=== PATIENT | female | born 1965 | race Caucasian/White ===

== ENCOUNTER 2017-01-16 13:08 | Emergency (ER) | payer MEDICAID, OTHER ==
[2017-01-16 13:33] VITALS: RESP 18; TEMP 98.6
[2017-01-16] MEDS ORDERED: Albuterol-Ipratrop 3 mg / 0.5 (3 ml) UD IH SCH (14:30)
[2017-01-16] MEDS ORDERED: Albuterol-Ipratrop 3 mg / 0.5 (3 ml) UD ONE (14:31)
--- NOTE | 2017-01-16 14:58 | C.PDOC ---
History Of Present Illness 51 yr old female with PMHx of diabetes and asthma, presents to the ER with complaints of cough, runny nose, wheezing and chest discomfort for the past 1 week. Patient denies fever, chills, nausea, vomiting, abdominal pain, diarrhea, headache, weakness or numbness. Time Seen by Provider: 01/16/17 13:48 Chief Complaint (Nursing): Shortness Of Breath History Per: Patient History/Exam Limitations: no limitations Onset/Duration Of Symptoms: Days (1 week) Initiating Event: Upper Respiratory Illness Past Medical History Reviewed: Historical Data, Nursing Documentation, Vital Signs Vital Signs: Last Vital Signs Temp 98.6 F 01/16/17 13:31 Pulse 78 01/16/17 13:31 Resp 18 01/16/17 13:55 BP 123/76 01/16/17 13:31 Pulse Ox 96 01/16/17 15:00 - Medical History PMH: Asthma, Diabetes, HTN, Hyperthyroidism - [facility] Procedures APPLICATION OF SPLINT (03/22/13) Family History: States: No Known Family Hx - Social History Hx Tobacco Use: No Hx Alcohol Use: No Hx Substance Use: No - Immunization History Hx Tetanus Toxoid Vaccination: No Hx Influenza Vaccination: Yes Hx Pneumococcal Vaccination: No Review Of Systems Except As Marked, All Systems Reviewed And Found Negative. Constitutional: Negative for: Fever, Chills ENT: Positive for: Nose Discharge (Runny nose) Cardiovascular: Positive for: Other ((+) Chest discomfort ) Respiratory: Positive for: Cough, Wheezing Gastrointestinal: Negative for: Nausea, Vomiting, Abdominal Pain, Diarrhea Neurological: Negative for: Weakness, Numbness, Headache Physical Exam - Physical Exam Appears: Well, Non-toxic, No Acute Distress, Other (Morbidly obese ) Skin: Warm, Dry, No Rash Head: Atraumatic, Normacephalic Eye(s): bilateral: Normal Inspection, PERRL, EOMI Ear(s): Bilateral: Normal Oral Mucosa: Moist Throat: Normal, No Erythema, No Exudate, No Drooling Neck: Normal, Normal ROM, Supple Chest: Symmetrical, No Tenderness Cardiovascular: Rhythm Regular, No Murmur Respiratory: Decreased Breath Sounds (bilateraly ), No Rales, No Wheezing Gastrointestinal/Abdominal: Normal Exam, Soft, No Tenderness, No Guarding, No Rebound, No Hernia Extremity: Normal ROM, No Swelling Neurological/Psych: Oriented x3, Normal Speech, Normal Motor ED Course And Treatment O2 Sat by Pulse Oximetry: 96 Progress Note: Patient is given 1 treatment of Nebulizer. Patient cannot be treated with steriods due to diabetes. Medical Decision Making Medical Decision Making: PLAN: * CXR * EKG * Albuterol IH Disposition Counseled Patient/Family Regarding: Studies Performed, Diagnosis, Need For Followup, Rx Given - Disposition Disposition: HOME/ ROUTINE Disposition Time: 15:25 Condition: IMPROVED Additional Instructions: Take medications as indicated. Follow up with your doctor. Return to the ED with any other concerns. Prescriptions: Albuterol 0.083% [Albuterol 0.083% Inhal Lety (2.5 mg/3 ml) UD] 2.5 mg IH BID # 24 neb Azithromycin [Zithromax] 250 mg PO DAILY #6 tab Benzonatate [Tessalon Perles] 200 mg PO BID #12 sgl Prednisone [Deltasone] 40 mg PO DAILY #6 tablet Prednisone 200 gm MC BID #12 powder Instructions: Acute Bronchitis (ED) Forms: General Discharge Instructions - POA Present On Arrival: None - Clinical Impression Clinical Impression: Bronchitis - Scribe Statement The provider has reviewed the documentation as recorded by the Jodi Mejia Provider Attestation: All medical record entries made by the Shunibamilcar were at my direction and personally dictated by me. I have reviewed the chart and agree that the record accurately reflects my personal performance of the history, physical exam, medical decision making, and the department course for this patient. I have also personally directed, reviewed, and agree with the discharge instructions and disposition.
--- NOTE | 2017-01-16 15:27 | RAD ---
HISTORY: cough, chest pain COMPARISON: 12/03/2013. TECHNIQUE: Chest PA and lateral FINDINGS: LUNGS: No active pulmonary disease. PLEURA: No significant pleural effusion identified. No pneumothorax apparent. CARDIOVASCULAR: Cardiomegaly, mild pulmonary vascular congestion. Similar therefore chronic findings identified previously. OSSEOUS STRUCTURES: No significant abnormalities. VISUALIZED UPPER ABDOMEN: Normal. OTHER FINDINGS: None. IMPRESSION: No active pulmonary disease. No significant interval change compared to the prior examination(s).
[2017-01-16 15:35] VITALS: BP 138/78; PULSE 75; O2SAT 98
--- NOTE | 2017-01-19 07:43 | CARD ---
APPROVED REPORT EKG Measurement Heart [id number] <Conclusion> Normal sinus rhythm Normal ECG
== END 2017-01-16 15:37 | disposition home or self-care (01) ==
LOC: C.ER 13:08
DX: J40 Bronchitis, not specified as acute or chronic (principal)

== ENCOUNTER 2017-06-13 11:24 | Emergency (ER) | payer MEDICAID, OTHER ==
[2017-06-13 11:31] VITALS: RESP 18
[2017-06-13] MEDS ORDERED: Albuterol-Ipratrop 3 mg / 0.5 (3 ml) UD ONE ×2 (12:05→12:56)
[2017-06-13] MEDS: Albuterol-Ipratrop 3 mg / 0.5 (3 ml) UD IH SCH ×3 (12:10→12:35)
[2017-06-13 12:16] LABS: BASO # 0.1 K/uL (0.0-0.2); BASO % 0.8 % (0.0-2.0); EOS # 0.3 K/uL (0.0-0.7); EOS % 4.8 % (0.0-4.0); HEMATOCRIT 38.7 % (34.0-47.0); LYMPH # 1.3 K/uL (1.0-4.3); LYMPH % 20.4 % (20.0-40.0); MEAN CELL VOLUME 79.2 fL (81.0-99.0); MEAN CORPUSCULAR HEMOGLOBIN 25.9 pg (27.0-31.0); MEAN CORPUSCULAR HGB CONC 32.6 g/dL (33.0-37.0); MEAN PLATELET VOLUME 7.9 fL (7.2-11.7); MONO # 0.5 K/uL (0.0-0.8); MONO % 8.1 % (0.0-10.0); RED CELL DISTRIBUTION WIDTH 16.4 % (11.5-14.5); WHITE BLOOD COUNT 6.4 K/uL (4.8-10.8)
[2017-06-13 12:17] LABS: CHLORIDE 104 mmol/L (98-107); POTASSIUM 4.3 mmol/L (3.6-5.2); SODIUM 140 mmol/L (132-148)
[2017-06-13 12:20] LABS: ALB/GLOB RATIO 1.1 (1.0-2.1); ALKALINE PHOSPHATASE 80 U/L (38-126); ALT/SGPT 41 U/L (9-52); AST/SGOT 29 U/L (14-36); BILIRUBIN,TOTAL 0.3 mg/dL (0.2-1.3); BLOOD UREA NITROGEN 20 mg/dL (7-17); CARBON DIOXIDE 23 mmol/L (22-30); GFR AFRICAN-AMERICAN > 60; GLUCOSE,RANDOM 209 mg/dL (65-105); TOTAL PROTEIN 7.1 g/dL (6.3-8.3)
[2017-06-13 12:21] LABS: CALCIUM 9.6 mg/dl (8.6-10.4)
[2017-06-13 13:57] VITALS: BP 130/60; PULSE 84; TEMP 98.2
--- NOTE | 2017-06-13 13:58 | RAD ---
PROCEDURE: CHEST RADIOGRAPH, 1 VIEW HISTORY: SOB COMPARISON: Comparison chest 01/16/2017 FINDINGS: LUNGS: Poor inspiration with low lung volumes, crowded bronchovascular markings and mild bibasilar atelectasis. The central pulmonary vasculature also appears increased which may in part be due to poor inspiration however the possibility of developing on pulmonary edema not excluded. Clinical correlation recommended. PLEURA: No pneumothorax or pleural fluid seen. CARDIOVASCULAR: Heart appears mildly enlarged OSSEOUS STRUCTURES: No significant abnormalities. VISUALIZED UPPER ABDOMEN: Normal. OTHER FINDINGS: None. IMPRESSION: Poor inspiration with low lung volumes, crowded bronchovascular markings and mild bibasilar atelectasis. The central pulmonary vasculature also appears increased which may in part be due to poor inspiration however the possibility of developing on pulmonary edema not excluded. Clinical correlation recommended.
[2017-06-13 13:59] VITALS: O2SAT 99
--- NOTE | 2017-06-13 13:59 | C.PDOC ---
History Of Present Illness 52 year old female, with PMHx of asthma, presents to the ED for evaluation of cough associated with back pain, wheezing and shortness of breath which began around 3 days ago. Patient states she's been experiencing asthma symptoms every day for several months. Patient has been using her inhaler every four hours every day. Patient denies fever, chills, chest pain, recent travel, or history of prior intubation or admission. Time Seen by Provider: 06/13/17 11:47 Chief Complaint (Nursing): Shortness Of Breath History Per: Patient History/Exam Limitations: no limitations Onset/Duration Of Symptoms: Days (3) Current Symptoms Are (Timing): Still Present Quality: denies: "Pain" Current Respiratory Medications: See Home Med List Associated Symptoms: denies: Fever, Chills Recent travel outside of the [place]: No Additional History Per: Patient Past Medical History Reviewed: Historical Data, Nursing Documentation, Vital Signs Vital Signs: Last Vital Signs Temp 98.2 F 06/13/17 13:55 Pulse 84 06/13/17 13:55 Resp 18 06/13/17 13:55 BP 130/60 06/13/17 13:55 Pulse Ox 99 06/13/17 14:57 - Medical History PMH: Asthma, Diabetes, HTN, Hyperthyroidism Surgical History: No Surg Hx - [facility] Procedures APPLICATION OF SPLINT (03/22/13) Family History: States: Unknown Family Hx - Social History Hx Tobacco Use: No Hx Alcohol Use: No Hx Substance Use: No - Immunization History Hx Tetanus Toxoid Vaccination: No Hx Influenza Vaccination: Yes Hx Pneumococcal Vaccination: No Review Of Systems Constitutional: Negative for: Fever Cardiovascular: Negative for: Chest Pain Respiratory: Positive for: Cough, Shortness of Breath, Wheezing Musculoskeletal: Positive for: Back Pain Physical Exam - Physical Exam Appears: Non-toxic, No Acute Distress Skin: Normal Color, Warm, Dry Head: Atraumatic, Normacephalic Eye(s): bilateral: Normal Inspection Oral Mucosa: Moist Neck: Supple Chest: Symmetrical, No Deformity Cardiovascular: Rhythm Regular, No Murmur Respiratory: No Rales, No Rhonchi, Wheezing (moderate, expiratory, bilaterally ) Back: Normal Inspection Extremity: Normal ROM, Capillary Refill (less than 2 seconds ) Neurological/Psych: Oriented x3, Normal Speech, Normal Cognition Gait: Steady ED Course And Treatment - Laboratory Results Result Diagrams: 06/13/17 12:01 06/13/17 12:01 O2 Sat by Pulse Oximetry: 99 (on RA) Pulse Ox Interpretation: Normal - Other Rad CXR X-Ray: Interpreted by Me, Viewed By Me, Read By Radiologist Interpretation: PROCEDURE: CHEST RADIOGRAPH, 1 VIEW. HISTORY: SOB. COMPARISON: Comparison chest 01/16/2017. FINDINGS: LUNGS: Poor inspiration with low lung volumes, crowded bronchovascular markings and mild bibasilar atelectasis. The central pulmonary vasculature also appears increased which may in part be due to poor inspiration however the possibility of developing on pulmonary edema not excluded. Clinical correlation recommended. PLEURA: No pneumothorax or pleural fluid seen. CARDIOVASCULAR: Heart appears mildly enlarged. OSSEOUS STRUCTURES: No significant abnormalities. VISUALIZED UPPER ABDOMEN: Normal. OTHER FINDINGS: None. IMPRESSION: Poor inspiration with low lung volumes, crowded bronchovascular markings and mild bibasilar atelectasis. The central pulmonary vasculature also appears increased which may in part be due to poor inspiration however the possibility of developing on pulmonary edema not excluded. Clinical correlation recommended. Medical Decision Making Medical Decision Making: Progress: EKG and CXR ordered. CXR results are negative. Case discussed with patient. Patient states she was prescribed Advair and several different pumps, but no longer uses them. Patient reports she has only been using regular albuterol to manage her symptoms. On re-exam, the patient reports improvement of symptoms. Lungs are CTA, heart is RRR, abdomen is soft, non-tender and tolerating PO well. Ambulatory in the ED steady. Follow up with the [facility] within 1-2 days. Return if worsened. Disposition - Disposition Referrals: Willis Benz DO [Staff Provider] - Suman Rivera MD [Staff Provider] - Disposition: HOME/ ROUTINE Disposition Time: 13:56 Condition: FAIR Additional Instructions: Follow up with the pulmologist within 1-2 days without fail. Return if worsened. Prescriptions: Azithromycin [Zithromax] 250 mg PO DAILY #6 tab Montelukast [Singulair] 10 mg PO DAILY #30 tab predniSONE [Prednisone] 20 mg PO BID #10 tab Instructions: Chronic Bronchitis (ED), How to Use a Nebulizer (ED) Forms: [employer] (Turkish) - Clinical Impression Clinical Impression: Acute bronchitis, Asthma exacerbation - PA / PRISON GUARD SUPERVISOR / Resident Statement MD/DO has reviewed & agrees with the documentation as recorded. - Scribe Statement The provider has reviewed the documentation as recorded by the Scribe (Viri Michel) All medical record entries made by the Scribe were at my direction and personally dictated by me. I have reviewed the chart and agree that the record accurately reflects my personal performance of the history, physical exam, medical decision making, and the department course for this patient. I have also personally directed, reviewed, and agree with the discharge instructions and disposition.
--- NOTE | 2017-06-15 18:44 | CARD ---
APPROVED REPORT EKG Measurement Heart [id number] [id number] <Conclusion> Normal sinus rhythm Right superior axis deviation Abnormal ECG
== END 2017-06-13 14:05 | disposition home or self-care (01) ==
LOC: C.ER 11:24
DX: J45.901 Unspecified asthma with (acute) exacerbation (principal); I10 Essential (primary) hypertension
CPT/HCPCS: 71010; 80053; 83880; 85025; 96374; 99284; J2930

== ENCOUNTER 2017-11-13 11:25 | Emergency (ER) | payer MEDICAID, OTHER ==
[2017-11-13 11:33] VITALS: BMI 50.5
[2017-11-13 11:35] VITALS: RESP 16; O2SAT 98
[2017-11-13] MEDS ORDERED: Albuterol-Ipratrop 3 mg / 0.5 (3 ml) UD IH STA (12:19)
--- NOTE | 2017-11-13 12:38 | C.PDOC ---
History Of Present Illness 52-year-old female, presents to the emergency department with complaints of one week cough and worsening asthma. using nebulizer at home with mild relief. cough is now productive of yellow sputum and complains of left upper back pain with cough. denies any fever Time Seen by Provider: 11/13/17 12:02 Chief Complaint (Nursing): Shortness Of Breath History Per: Patient History/Exam Limitations: no limitations Past Medical History Reviewed: Historical Data, Nursing Documentation, Vital Signs Vital Signs: Last Vital Signs Temp 98.2 F 11/13/17 13:17 Pulse 78 11/13/17 13:17 Resp 16 11/13/17 13:17 BP 131/70 11/13/17 13:17 Pulse Ox 98 11/13/17 13:48 - Medical History PMH: Asthma, Diabetes, HTN, Hyperthyroidism - [facility] Procedures APPLICATION OF SPLINT (03/22/13) Family History: States: No Known Family Hx - Social History Hx Tobacco Use: No Hx Alcohol Use: No Hx Substance Use: No - Immunization History Hx Tetanus Toxoid Vaccination: No Hx Influenza Vaccination: Yes Hx Pneumococcal Vaccination: No Review Of Systems Constitutional: Negative for: Fever, Chills Cardiovascular: Negative for: Chest Pain Respiratory: Positive for: Cough, Sputum, Wheezing Gastrointestinal: Negative for: Vomiting Musculoskeletal: Positive for: Back Pain Skin: Negative for: Rash Neurological: Negative for: Weakness, Headache, Dizziness Physical Exam - Physical Exam Appears: Well, Non-toxic, No Acute Distress Skin: Warm, Dry, No Rash Head: Atraumatic, Normacephalic Eye(s): bilateral: Normal Inspection, EOMI Ear(s): Bilateral: Normal (no erythema) Nose: Normal, No Flaring, No Discharge Oral Mucosa: Moist Neck: Normal ROM Chest: Symmetrical Cardiovascular: Rhythm Regular, No Murmur Respiratory: Normal Breath Sounds, No Accessory Muscle Use, No Rhonchi, No Wheezing Extremity: Normal ROM, No Deformity, No Swelling Neurological/Psych: Oriented x3, Normal Speech ED Course And Treatment O2 Sat by Pulse Oximetry: 98 (RA) Pulse Ox Interpretation: Normal Medical Decision Making Medical Decision Making: Patient with cough for one week and complains of worsening symptoms. CXR ordered and viewed. Treated with duoneb and prednisone. Patient remained afebrile and in no respiratory distress. Lungs clear bilaterally. Patient stable for discharge. Rx given and patient instructed to follow up with PCP. Disposition Counseled Patient/Family Regarding: Diagnosis, Need For Followup, Rx Given - Disposition Disposition: HOME/ ROUTINE Disposition Time: 13:00 Condition: IMPROVED Additional Instructions: Follow up with your primary medical doctor or clinic in 2-5 days for further evaluation. Take medications as prescribed. Return to the emergency department at any time if symptoms persist or worsen. Prescriptions: Azithromycin [Zithromax] 250 mg PO DAILY #6 tab Cyclobenzaprine [Cyclobenzaprine HCl] 10 mg PO TID #21 tab Prednisone 50 mg PO DAILY #4 tablet Instructions: Asthma in Adults Forms: [employer] (British) - POA Present On Arrival: None - Clinical Impression Clinical Impression: Asthma exacerbation - Scribe Statement The provider has reviewed the documentation as recorded by the Scribe (Jimi Remy) All medical record entries made by the Scribe were at my direction and personally dictated by me. I have reviewed the chart and agree that the record accurately reflects my personal performance of the history, physical exam, medical decision making, and the department course for this patient. I have also personally directed, reviewed, and agree with the discharge instructions and disposition.
[2017-11-13] MEDS ORDERED: Albuterol-Ipratrop 3 mg / 0.5 (3 ml) UD ONE (12:41)
--- NOTE | 2017-11-13 12:42 | RAD ---
HISTORY: sob COMPARISON: Chest radiograph dated 06/13/2017. TECHNIQUE: Chest PA and lateral FINDINGS: LUNGS: No active pulmonary disease. PLEURA: No significant pleural effusion identified. No pneumothorax apparent. CARDIOVASCULAR: Cardiomediastinal silhouette stably prominent. OSSEOUS STRUCTURES: Unchanged. VISUALIZED UPPER ABDOMEN: Normal. OTHER FINDINGS: None. IMPRESSION: No active disease.
[2017-11-13 13:19] VITALS: BP 131/70; PULSE 78; TEMP 98.2
== END 2017-11-13 13:19 | disposition home or self-care (01) ==
LOC: C.ER 11:25
DX: J45.901 Unspecified asthma with (acute) exacerbation (principal)

== ENCOUNTER 2018-08-21 14:22 | Emergency (ER) | payer MEDICAID, OTHER ==
[2018-08-21 14:29] VITALS: BMI 44.6
[2018-08-21 14:33] VITALS: BP 122/70; PULSE 71; RESP 20; TEMP 97.6; O2SAT 100
--- NOTE | 2018-08-21 15:27 | C.PDOC ---
History Of Present Illness 53 year old female presents to the ED complaining of left posterior shoulder pain and sinus pain for 2 weeks. Denies any fever, chills, ear pain, sore throat, nausea, vomiting, diarrhea, weakness, numbness. Notes shoulder pain is worse when lifting left arm when performing activities such as changing clothes. Reports she has taken Ibuprofen and applied Nasal [place] with minor relief. Time Seen by Provider: 08/21/18 14:38 Chief Complaint (Nursing): Upper Extremity Problem/Injury History Per: Patient History/Exam Limitations: no limitations Onset/Duration Of Symptoms: Days (2 weeks) Current Symptoms Are (Timing): Still Present Quality: "Pain" Exacerbating Factor(s): Strenuous Use Of Affected Area Past Medical History Vital Signs: Last Vital Signs Temp 97.6 F 08/21/18 14:29 Pulse 71 08/21/18 14:29 Resp 20 08/21/18 14:29 BP 122/70 08/21/18 14:29 Pulse Ox 100 08/21/18 14:29 - Medical History PMH: Asthma, Diabetes, HTN, Hyperthyroidism Other Surgeries: Hx of surgeries - [facility] Procedures APPLICATION OF SPLINT (03/22/13) Family History: States: Unknown Family Hx - Social History Hx Tobacco Use: No Hx Alcohol Use: No Hx Substance Use: No - Immunization History Hx Tetanus Toxoid Vaccination: No Hx Influenza Vaccination: Yes Hx Pneumococcal Vaccination: No Review Of Systems Constitutional: Negative for: Fever, Chills ENT: Positive for: Other (sinus pain ) Musculoskeletal: Positive for: Shoulder Pain (left) Neurological: Negative for: Weakness, Numbness Physical Exam - Physical Exam Appears: Non-toxic, No Acute Distress Skin: Warm, Dry, No Rash Head: Atraumatic, Normacephalic Eye(s): bilateral: Normal Inspection Ear(s): Bilateral: Normal Nose: Normal, No Tenderness Oral Mucosa: Moist Throat: Normal, No Erythema, No Exudate Neck: Normal ROM, Supple Lymphatic: No Adenopathy Chest: Symmetrical Cardiovascular: Rhythm Regular Respiratory: Normal Breath Sounds, No Rales, No Rhonchi, No Wheezing Gastrointestinal/Abdominal: Soft, No Tenderness Extremity: Normal ROM, Tenderness (left trapezius muscle tenderness), Capillary Refill (less than 2 sec to left shoulder), No Deformity, No Swelling Extremity: Bilateral: Atraumatic, Normal Color And Temperature, Normal ROM Pulses: Left Radial: Normal, Right Radial: Normal Neurological/Psych: Oriented x3, Normal Speech, Normal Motor, Normal Sensation, Normal Reflexes Gait: Steady ED Course And Treatment O2 Sat by Pulse Oximetry: 100 (RA) Pulse Ox Interpretation: Normal - Other Rad Left shoulder XR X-Ray: Viewed By Me, Read By Radiologist Interpretation: Accession No. : [id number]. Patient Name / ID : EDUAR CRUZ / [id number]. Exam Date : 08/21/2018 14:53:13 ( Approved ). Study Comment : Sex / Age : F / 53Y. Creator : Marissa Anderson MD. Dictator : Marissa Anderson MD. Alarm Signal Operator : C Software Developer : Marissa Anderson MD. Approver2 : Report Date : 08/21/2018 15:29:09. My Comment : . Date of service: 08/21/2018. PROCEDURE: <SHOULDER LEFT>. HISTORY: pain to shoulder. COMPARISON: No prior. FINDINGS: BONES: Bone alignment and mineralization are normal. There is no acute displaced fracture or bone destruction. JOINTS: There is mild degenerative osteoarthrosis in the acromioclavicular joint. The glenohumeral joint is normal. SOFT TISSUES: Normal. OTHER FINDINGS: None. IMPRESSION: No acute displaced fracture or dislocation. 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 Medical Decision Making Medical Decision Making: Plan - Left shoulder X-Ray - Toradol 30mg IM Patient requesting EKG because she was told she has an enlarged heart and wants to make sure there is nothing wrong with her heart. EKG was NS at 63 bpm with no STEMI Patient remained well in no distress and stable for discharge Disposition Counseled Patient/Family Regarding: Diagnosis, Need For Followup - Disposition Referrals: Willis Benz DO [Staff Provider] - Disposition: HOME/ ROUTINE Disposition Time: 16:00 Condition: GOOD Prescriptions: Cyclobenzaprine [Cyclobenzaprine HCl] 10 mg PO TID #21 tab Ibuprofen [Motrin] 600 mg PO Q8 #30 tab Phenylephrine/Dm/Acetaminop/GG [Sudafed PE Pressure+Pain+Cold] 1 each PO Q8 #24 tablet Triamcinolone Acetonide [Nasacort] 10.8 ml NS DAILY #1 spray Instructions: Muscle and Bone Pain (DC), Sinus Headache (DC) Forms: [employer] (Turkish) - POA Present On Arrival: None - Clinical Impression Clinical Impression: Sinus headache, Muscle strain of left shoulder - PA / BRIDGE OPERATOR SLIP / Resident Statement MD/DO has reviewed & agrees with the documentation as recorded. - Scribe Statement The provider has reviewed the documentation as recorded by the Scribamilcar Claros All medical record entries made by the Jodi were at my direction and personally dictated by me. I have reviewed the chart and agree that the record accurately reflects my personal performance of the history, physical exam, medical decision making, and the department course for this patient. I have also personally directed, reviewed, and agree with the discharge instructions and disposition.
--- NOTE | 2018-08-21 15:32 | RAD ---
Date of service: 08/21/2018 PROCEDURE: <SHOULDER LEFT> HISTORY: pain to shoulder COMPARISON: No prior. FINDINGS: BONES: Bone alignment and mineralization are normal. There is no acute displaced fracture or bone destruction. JOINTS: There is mild degenerative osteoarthrosis in the acromioclavicular joint. The glenohumeral joint is normal. SOFT TISSUES: Normal. OTHER FINDINGS: None. IMPRESSION: No acute displaced fracture or dislocation. 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
--- NOTE | 2018-08-23 14:50 | CARD ---
APPROVED REPORT Date of service: 08/21/2018 EKG Measurement Heart [id number] <Conclusion> Normal sinus rhythm Normal ECG
== END 2018-08-21 16:08 | disposition home or self-care (01) ==
LOC: C.ER 14:22
DX: S46.912A Strain of unspecified muscle, fascia and tendon at shoulder and upper arm level, left arm, initial encounter (principal); X58.XXXA Exposure to other specified factors, initial encounter; R51 Headache; E11.9 Type 2 diabetes mellitus without complications; I10 Essential (primary) hypertension; E05.90 Thyrotoxicosis, unspecified without thyrotoxic crisis or storm
CPT/HCPCS: 73030; 93005; 96372; 99284; J1885